=== PATIENT | female | born 1960 | race Caucasian/White ===

== ENCOUNTER 2018-12-26 10:15 | Outpatient (REF) | payer BC, SELFPAY ==
--- NOTE | 2018-12-26 09:30 | PAPFT_PTH ---
PATIENT: Eddy Palomares LOC: [facility]#:[id number] AGE/SX: 58/F ROOM: RE12/26/[address]: Nohemy Thibodeaux : 1960 BED: DIS: 12/26/2018 SPEC #: [id number] RECD: 12/29/18 13:03 STATUS: JULIO DANIEL #: [id number] AMALIA: 12/26/18 09:[address]: Nohemy Ellison DEPT: [facility] Cytology RECD BY: Michelle Abdi ENTERED: 12/29/18 13:03 SP TYPE: PAPFT OTHR DR: Katherine Jeffers Tissues: 1 - CX/ENDOCX FOR PAP SMEARS Procedures: PAP THIN PREP/[facility] Screening HPV DNA PROBE Comments: [id number]
[2018-12-26 21:06] LABS: Anion Gap 8.6 mmol/L (3-11); BUN 10 mg/dL (7-18); CO2 29.4 mmol/L (21.0-32.0); CREATININE 0.94 mg/dL (0.55-1.02); Calcium 8.8 mg/dL (8.5-10.1); Chloride 103 mmol/L (98-107); Cholesterol 160 mg/dL (50-200); Glucose 83 mg/dL (70-100); HDL Cholesterol 67 mg/dL (40-60); LDL CHOLESTEROL 81 mg/dL (<100); Sodium 141 mmol/L (136-145); Triglyceride 41 mg/dL (30-150)
== END 2018-12-26 10:35 ==
LOC: NCHCN 10:15
PROVIDERS: PCP Nurse Practitioner Family; Visit Provider Nurse Practitioner Family
DX: Z00.00 Encounter for general adult medical examination without abnormal findings (principal); R14.0 Abdominal distension (gaseous); F43.21 Adjustment disorder with depressed mood; N94.10 Unspecified dyspareunia; F17.200 Nicotine dependence, unspecified, uncomplicated; L40.9 Psoriasis, unspecified; Z12.4 Encounter for screening for malignant neoplasm of cervix; Z11.51 Encounter for screening for human papillomavirus (HPV)
CPT/HCPCS: 80048; 80061; 83721; 88142; 87624

== ENCOUNTER 2020-06-29 16:20 | Outpatient (REF) | payer OTHER, SELFPAY ==
[2020-06-29 22:18] LABS: HCT 40.6 % (36.0-46.0); MCH 27.8 pg (27.0-33.0); MCV 86.9 fL (80-95); MPV 10.2 fL (8.0-11.0); Platelet Count 233 10^3/uL (130-400); RBC 4.67 10^6/uL (3.93-5.22); RDW 13.1 % (11.7-14.6); RDW-SD 40.9 fL; WBC 6.82 10^3/uL (4.4-10.8)
[2020-06-29 22:36] LABS: ALT 14 U/L (14-59); AST 21 U/L (15-37); Albumin 3.8 g/dL (3.4-5.0); Alkaline Phosphatase 50 U/L (46-116); Anion Gap 7.5 mmol/L (3-11); BUN 12 mg/dL (7-18); Bilirubin, Total 0.4 mg/dL (0.2-1.0); CO2 28.5 mmol/L (21.0-32.0); CREATININE 0.91 mg/dL (0.55-1.02); Calcium 8.7 mg/dL (8.5-10.1); Chloride 105 mmol/L (98-107); Glucose 79 mg/dL (74-106); Potassium 3.7 mmol/L (3.5-5.1); Sodium 141 mmol/L (136-145); TSH (W/Ref FT4) 0.72 uIU/mL (0.36-3.74); Total Protein 6.7 g/dL (6.4-8.2)
== END 2020-06-29 16:40 ==
LOC: NCHCN 16:20
PROVIDERS: PCP Nurse Practitioner Community Health; Visit Provider Nurse Practitioner Community Health
DX: R07.2 Precordial pain (principal); R10.11 Right upper quadrant pain; Z63.79 Other stressful life events affecting family and household
CPT/HCPCS: 80053; 85027; 84443

== ENCOUNTER 2021-03-29 12:47 | Outpatient (REF) | payer OTHER, SELFPAY ==
[2021-03-29 22:08] LABS: HCT 37.9 % (36.0-46.0); HGB 12.2 g/dL (11.2-15.7); MCH 28.3 pg (27.0-33.0); MCHC 32.2 % (32.0-36.0); MCV 87.9 fL (80-95); Platelet Count 238 10^3/uL (130-400); RBC 4.31 10^6/uL (3.93-5.22); RDW-SD 41.9 fL; WBC 6.04 10^3/uL (4.4-10.8)
[2021-03-29 22:29] LABS: ALT 15 U/L (14-59); AST 15 U/L (15-37); Albumin 3.6 g/dL (3.4-5.0); Alkaline Phosphatase 50 U/L (46-116); Anion Gap 5.4 mmol/L (3-11); BUN 9 mg/dL (7-18); Bilirubin, Total 0.4 mg/dL (0.2-1.0); CO2 30.6 mmol/L (21.0-32.0); CREATININE 0.9 mg/dL (0.55-1.02); Calcium 8.8 mg/dL (8.5-10.1); Chloride 107 mmol/L (98-107); Glucose 89 mg/dL (74-106); PHOSPHORUS 3.7 mg/dL (2.6-4.7); Sodium 143 mmol/L (136-145); TSH 0.94 uIU/mL (0.36-3.74); Total Protein 6.3 g/dL (6.4-8.2)
[2021-03-30 01:18] LABS: Vitamin D 25 Total 23.3 ng/mL (30-100)
== END 2021-03-29 12:48 | disposition home or self-care (01) ==
LOC: NCHCN 12:47
PROVIDERS: PCP Nurse Practitioner Community Health; Visit Provider Nurse Practitioner Family
DX: M81.0 Age-related osteoporosis without current pathological fracture (principal)
CPT/HCPCS: 80053; 82306; 85027; 84100; 84443

== ENCOUNTER 2024-01-01 12:39 | Outpatient (REF) | payer OTHER, SELFPAY | END 2024-01-01 12:40 | disposition home or self-care (01) | LOC: NCHCN 12:39 | PROVIDERS: PCP Physician Assistant; Visit Provider Physician Assistant | DX: J02.9 Acute pharyngitis, unspecified (principal) | CPT/HCPCS: 87070 ==

== ENCOUNTER 2024-03-09 13:32 | Outpatient (REF) | payer OTHER, SELFPAY ==
--- NOTE | 2024-03-09 10:15 | PAPFT_PTH ---
PATIENT: Eddy Palomares LOC: [facility]#:[id number] AGE/SX: 63/F ROOM: RE03/09/[address]: Nohemy Thibodeaux : 1960 BED: DIS: 03/09/2024 SPEC #: [id number] RECD: 03/09/24 18:34 STATUS: JULIO REJulian #: [id number] AMALIA: 03/09/24 10:[address]: Nohemy Ellison DEPT: [facility] Cytology RECD BY: Michelle Abdi ENTERED: 03/09/24 18:34 SP TYPE: PAPFT OTHR DR: Michelle Bhandari Tissues: 1 - CX/ENDOCX FOR PAP SMEARS Procedures: PAP THIN PREP/[facility] Screening HPV DNA PROBE Comments: [id number] (HPV 16 & 18/45)
== END 2024-03-09 13:33 | disposition home or self-care (01) ==
LOC: NCHCN 13:32
PROVIDERS: PCP Physician Assistant; Visit Provider Nurse Practitioner Family
DX: Z12.4 Encounter for screening for malignant neoplasm of cervix (principal); Z11.51 Encounter for screening for human papillomavirus (HPV)
CPT/HCPCS: 80061; 85652; 88142; 85025; 86140; 87624

== ENCOUNTER 2024-03-12 08:58 | Outpatient (REF) | payer OTHER, SELFPAY ==
[2024-03-12 14:37] LABS: Abs Immature Grans 0.02 10^3/uL (0.0-0.06); Absolute Basophil Count 0.05 10^3/uL (0.0-0.2); Absolute Eosinophil Count 0.26 10^3/uL (0.0-0.7); Absolute Lymphocyte Count 1.31 10^3/uL (1.2-3.4); Absolute Monocyte Count 0.44 10^3/uL (0.1-0.8); Absolute Neutrophil Count 3.37 10^3/uL (1.2-6.7); Basophils % 0.9 %; Eosinophils % 4.8 %; HGB 13.7 g/dL (11.2-15.7); Immature Grans % 0.4 %; MCH 27.5 pg (27.0-33.0); MCHC 31.9 % (32.0-36.0); MCV 86 fL (80-95); MPV 10.7 fL (8.0-11.0); Monocytes % 8.1 %; Neutrophils % 61.8 %; Platelet Count 202 10^3/uL (130-400); RBC 4.98 10^6/uL (3.93-5.22); RDW 13.2 % (11.7-14.6); RDW-SD 41.1 fL; WBC 5.45 10^3/uL (4.4-10.8)
[2024-03-12 14:45] LABS: ESR 8 mm/hr (0-30)
[2024-03-12 14:52] LABS: Calculated LDL 87 mg/dL (<100); Cholesterol 172 mg/dL (<200); HDL Cholesterol 73 mg/dL (40-60); Triglyceride 64 mg/dL (<150)
[2024-03-12 16:15] LABS: C-Reactive Protein < 0.50 mg/dL (<or=0.5)
== END 2024-03-12 08:59 | disposition home or self-care (01) ==
LOC: NCHCN 08:58
PROVIDERS: PCP Physician Assistant; Visit Provider Nurse Practitioner Family
DX: R51.9 Headache, unspecified (principal); Z13.6 Encounter for screening for cardiovascular disorders
CPT/HCPCS: 80061; 85652; 85025; 86140

== ENCOUNTER 2024-07-13 08:26 | Outpatient (REF) | payer OTHER, SELFPAY ==
[2024-07-13 18:31] LABS: Calculated LDL 83 mg/dL (<100); Cholesterol 167 mg/dL (<200); HDL Cholesterol 76 mg/dL (40-60); Triglyceride 42 mg/dL (<150)
== END 2024-07-13 08:27 | disposition home or self-care (01) ==
LOC: NCHCN 08:26
PROVIDERS: PCP Physician Assistant; Visit Provider Nurse Practitioner Family
DX: E78.5 Hyperlipidemia, unspecified (principal)
CPT/HCPCS: 80061